=== PATIENT | female | born 1990 | race Caucasian/White ===

== ENCOUNTER 2017-11-22 17:20 | Inpatient (IN) | payer BC, OTHER ==
[2017-11-22 18:19] VITALS: BMI 21.2
--- NOTE | 2017-11-22 21:24 | HP ---
COWS - Scale Resting Pulse: 1= TN 81-100 Sweatin= Chills/Flushing Restless Observation: 1= Difficult to Sit Still Pupil Size: 0= Normal to Room Light Bone or Joint Aches: 4=Acute Joint/Muscle Pain Runny Nose/ Eye Tearin= Runny Nose/Eyes GI Upset > 30mins: 2= Nausea/Diarrhea (diarrhea x 2) Tremor Observation: 2= Slight Tremor Visible Yawning Observation: 0= None Anxiety or Irritability: 4=Extreme Anxiety Goose Flesh Skin: 0=Smooth Skin COWS Score: 17 CIWA Score - CIWA Score Nausea/Vomitin Muscle Tremors: 4-Moderate,w/Arms Extend Anxiety: 4-Mod. Anxious/Guarded Agitation: 4-Moderately Restless Paroxysmal Sweats: 1-Minimal Palms Moist Orientation: 0-Oriented Tacttile Disturbances: 0-None Auditory Disturbances: 0-None Visual Disturbances: 0-None Headache: 2-Mild CIWA-Ar Total Score: 18 Admission ROS BHS - HPI Chief Complaint: Withdrawal symptoms Allergies/Adverse Reactions: Allergies Allergy/AdvReac Type Severity Reaction Status Date / Time Penicillins Allergy Mild Hives Verified 11/22/17 18:36 NO MEAT Allergy Unknown NO MEAT Uncoded 11/22/17 18:36 History of Present Illness: 26 years old female with 13 years history of heroin and benzodiazepine dependence is seeking admission to detox. Patient has been in previous detox last at [facility] and reports insignificant period of sobriety. She has medical history of anxiety, anemia, seizure and depression. Patient reports suicide attempt in 2013 and denies suicidal ideation at this time. Patient states that she is on Methadone 110mg tablet oral at [facility]. Dose is yet to be verified by the nurse. Exam Limitations: No Limitations - Ebola screening Have you traveled outside of the country in the last 21 days: No (N) Have you had contact with anyone from an Ebola affected area: No Have you been sick,other than usual withdrawal symptoms: No Do you have a fever: No - Review of Systems Constitutional: Chills, Loss of Appetite, Malaise, Night Sweats, Changes in sleep EENT: reports: Sinus Pressure Respiratory: reports: No Symptoms reported Cardiac: reports: No Symptoms Reported GI: reports: Diarrhea (x 2), Nausea, Poor Appetite, Poor Fluid Intake, Abdominal cramping : reports: No Symptoms Reported Musculoskeletal: reports: Back Pain, Muscle Pain Integumentary: reports: No Symptoms Reported Neuro: reports: Headache, Tremors Endocrine: reports: No Symptoms Reported Hematology: reports: Anemia Psychiatric: reports: Judgement Intact, Mood/Affect Appropiate, Anxious Other Systems: Reviewed and Negative Patient History - Patient Medical History Hx Anemia: Yes (Not on mediation) Hx Asthma: No Hx Chronic Obstructive Pulmonary Disease (COPD): No Hx Cancer: No Hx Cardiac Disorders: No Hx Congestive Heart Failure: No Hx Hypertension: No Hx Hypercholesterolemia: No Hx Pacemaker: No HX Cerebrovascular Accident: No Hx Seizures: Yes (drug related last in 2010) Hx Dementia: No Hx Diabetes: No Hx Gastrointestinal Disorders: No Hx Liver Disease: No Hx Genitourinary Disorders: No Hx Sexually Transmitted Disorders: No Hx Renal Disease (ESRD): No Hx Thyroid Disease: No Hx Human Immunodeficiency Virus (HIV): No (Negative 2016) Hx Hepatitis C: No Hx Depression: Yes (Not on medication) Hx Suicide Attempt: No (Reports suicide attempt in 2013. Denies suicidal ideation at this time) Hx Bipolar Disorder: Yes Hx Schizophrenia: No Other Medical History: Anxiety - Not on medication - Patient Surgical History Past Surgical History: Yes Hx Neurologic Surgery: No Hx Cataract Extraction: No Hx Cardiac Surgery: No Hx Lung Surgery: No Hx Breast Surgery: No Hx Breast Biopsy: No Hx Abdominal Surgery: No Hx Appendectomy: No Hx Cholecystectomy: No Hx Genitourinary Surgery: No Hx Section: No Hx Orthopedic Surgery: No Anesthesia Reaction: No - PPD History Previous Implant?: Yes Documented Results: Negative w/proof Date: 11/21/11 PPD to be Administered?: Yes - Reproductive History Patient is a Female of Child Bearing Age (11 -55 yrs old): Yes Last Menstrual Period: 10/29/11 Patient : No - Smoking Cessation Smoking history: Current every day smoker Have you smoked in the past 12 months: Yes Aproximately how many cigarettes per day: 20 Hx Chewing Tobacco Use: No Initiated information on smoking cessation: Yes 'Breaking Loose' booklet given: 11/22/17 - Substance & Tx. History Hx Alcohol Use: No Hx Substance Use: Yes Substance Use Type: Cocaine, Heroin, Opiates Hx Substance Use Treatment: Yes - Substances Abused Alprazolam (Xanax) Route: Oral Frequency: Daily Amount used: 2mg Age of first use: 19 Date of Last Use: 11/22/17 Crack Route: Smoking Frequency: Daily Amount used: 5 bags Age of first use: 16 Date of Last Use: 11/21/17 Heroin Route: Injection Frequency: Daily Amount used: 40 bags Age of first use: 15 Date of Last Use: 11/22/17 Family Disease History - Family Disease History Family Disease History: Heart Disease: Grandparent (Prostate Ca and HTN), CA: Grandparent Admission Physical Exam [facility] - Vital Signs Vital Signs: Vital Signs - 24 hr 11/22/17 18:15 Temperature 97.0 F L Pulse Rate 83 Respiratory 18 Rate Blood Pressure 112/68 - Physical General Appearance: Yes: Moderate Distress HEENTM: Yes: EOMI, Normal ENT Inspection, Normocephalic, Normal Voice, KATHE Respiratory: Yes: Lungs Clear, Normal Breath Sounds, No Respiratory Distress Neck: Yes: Supple Breast: Yes: Breast Exam Deferred Cardiology: Yes: Regular Rhythm, Regular Rate Abdominal: Yes: Normal Bowel Sounds Genitourinary: Yes: Within Normal Limits Back: Yes: Normal Inspection Musculoskeletal: Yes: Back pain, Muscle Pain Extremities: Yes: Tremors Neurological: Yes: occupational therapy supervisor II-XII NML intact, Alert Integumentary: Yes: Warm Lymphatic: Yes: Within Normal Limits - Diagnostic (1) Opioid dependence with withdrawal Current Visit: Yes Status: Chronic (2) Sedative, hypnotic or anxiolytic dependence with withdrawal, uncomplicated Current Visit: Yes Status: Chronic (3) Anxiety Current Visit: Yes Status: Chronic (4) Anemia Current Visit: Yes Status: Chronic Qualifiers: Anemia type: unspecified type Qualified Code(s): D64.9 - Anemia, unspecified (5) Seizure Current Visit: Yes Status: Chronic (6) Depression Current Visit: Yes Status: Chronic Qualifiers: Depression Type: unspecified Qualified Code(s): F32.9 - Major depressive disorder, single episode, unspecified Cleared for Admission [facility] - Detox or Rehab [facility] Level of Care: Medically Managed Detox Regimen/Protocol: Valium [facility] Breath Alcohol Content Breath Alcohol Content: 0 Urine Pregancy Test - Result Urine Test Results: Negative- NO Line Present Urine Drug Screen - Results Drug Screen Negative: No Urine Drug Screen Results: NERISSA-Cocaine, OPI-Opiates, MDMA-Ecstasy, BAR- Barbiturates, FEN-Fentanyl
[2017-11-22] MEDS ORDERED: MELATONIN 5 MG TABLETS PO PRN (22:00)
[2017-11-22] MEDS ORDERED: diazePAM 5 MG TABLET PO PRN (23:06)
[2017-11-22] MEDS ORDERED: P-EPHED 60MG/TRIPROLIDI 2.5MG TABLET PO PRN (23:06)
[2017-11-22] MEDS ORDERED: MAGNESIUM CITRATE 300 ML BOTTLE PO PRN (23:06)
[2017-11-22] MEDS ORDERED: MAGNESIUM HYDROX 2400MG/30ML ORAL SUSPENSION 30 ML CUP PO PRN (23:06)
[2017-11-22] MEDS ORDERED: MENTHOL/PHENOL 1 EACH UD MM PRN (23:06)
[2017-11-22] MEDS ORDERED: LOPERAMIDE HCL 2 MG CAPSULE PO PRN (23:06)
[2017-11-22] MEDS ORDERED: guaiFENesin/D-METHORPHAN HB 10 ML UNIT-DOSE CUPS PO PRN (23:06)
[2017-11-22] MEDS ORDERED: MAG HYDROX/AL HYDROX/SIMETH 30 ML UNIT-DOSE CUP PO PRN (23:06)
[2017-11-22] MEDS ORDERED: NICOTINE POLACRILEX 2 MG GUM BC PRN (23:06)
[2017-11-22] MEDS ORDERED: ACETAMINOPHEN 325 MG TABLET (FP) PO PRN (23:06)
[2017-11-22] MEDS ORDERED: diazePAM 5 MG TABLET PO ONE (23:15)
[2017-11-23] MEDS ORDERED: diazePAM 5 MG TABLET PO ONE (00:34)
[2017-11-23] MEDS: diazePAM 5 MG TABLET PO SCH ×5 (01:03→22:24)
--- NOTE | 2017-11-23 08:49 | CONSULT ---
[facility] Psychiatric Consult - Data Date of interview: 11/23/17 Admission source: [facility] Identifying data: This is a 26 years old female, single mother of one, unemployed, living alone, on PA, with 13 years history of heroin and benzodiazepine dependence is seeking admission to detox. Patient has been in previous detox last at [facility] and reports insignificant period of sobriety. Substance Abuse History: Urine Drug Screen Results: NERISSA-Cocaine, OPI-Opiates, MDMA-Ecstasy, BAR-Barbiturates, FEN-Fentanyl. Smoking history: Current every day smoker. Have you smoked in the past 12 months: Yes. Aproximately how many cigarettes per day: 20. Hx Chewing Tobacco Use: No. Initiated information on smoking cessation: Yes. 'Breaking Loose' booklet given: 11/22/17. - Substance & Tx. History. Hx Alcohol Use: No. Hx Substance Use: Yes. Substance Use Type : Cocaine, Heroin, Opiates. Hx Substance Use Treatment: Yes. - Substances Abused. Alprazolam (Xanax). Route: Oral. Frequency: Daily. Amount used: 2mg. Age of first use: 19. Date of Last Use: 11/22/17. Crack. Route: Smoking. Frequency: Daily. Amount used: 5 bags. Age of first use: 16. Date of Last Use: 11/21/17. Heroin. Route: Injection. Frequency: Daily. Amount used: 40 bags. Age of first use: 15. Date of Last Use: 11/22/17 Medical History: MMTP 110mg per day, Anemia history, Seizure history, Psychiatric History: As per comp[uter carries Bipolar Disorder, reports suicidal attempt by OD on 2013, psychiatric admission at thet time, demied suicidal, homicidal history since then, reports tasking prior to admission: Ambien 10mg po qhs. Gabapentine 800mg po qid. Lexapro 30mg poqd Physical/Sexual Abuse/Trauma History: Denies Additional Comment: Urine Drug Screen Results: NERISSA-Cocaine, OPI-Opiates, MDMA- Ecstasy, BAR-Barbiturates, FEN-Fentanyl. Ambien 10mg po qhs. Gabapentine 800mg po qid. Lexapro 30mg poqd Mental Status Exam - Mental Status Exam Alert and Oriented to: Person Cognitive Function: Fair Patient Appearance: Unkempt Mood: Sad Affect: Flat Patient Behavior: Sedated Speech Pattern: Delayed Voice Loudness: Mildly Soft/Quiet Thought Process: Circumstantial Thought Disorder: Being Controlled Hallucinations: Denies Suicidal Ideation: Denies Homicidal Ideation: Denies Insight/Judgement: Fair Sleep: Difficulty falling asleep Appetite: Fair Muscle strength/Tone: Mild Hypotonicity Gait/Station: Shuffling Additional Comments: Ambien 10mg po qhs. Gabapentine 800mg po qid. Lexapro 30mg poqd Psychiatric Findings - Problem List ([place] 1, 2,3) (1) Anemia Current Visit: Yes Status: Chronic Qualifiers: Anemia type: unspecified type Qualified Code(s): D64.9 - Anemia, unspecified (2) Anxiety Current Visit: Yes Status: Chronic (3) Depression Current Visit: Yes Status: Chronic Qualifiers: Depression Type: unspecified Qualified Code(s): F32.9 - Major depressive disorder, single episode, unspecified (4) Opioid dependence with withdrawal Current Visit: Yes Status: Chronic (5) Sedative, hypnotic or anxiolytic dependence with withdrawal, uncomplicated Current Visit: Yes Status: Chronic (6) Seizure Current Visit: Yes Status: Chronic (7) Opioid dependence Current Visit: No Status: Active (8) bipolar disorder with depression Current Visit: No Status: Active (9) ptsd Current Visit: No Status: Active - Initial Treatment Plan Initial Treatment Plan: Ambien 10mg po qhs. Gabapentine 800mg po qid. Lexapro 30mg poqd
[2017-11-23] MEDS ORDERED: ESCITALOPRAM OXALATE 10 MG TABLET (FP) ONE (09:26)
[2017-11-23] MEDS ORDERED: ESCITALOPRAM OXALATE 20 MG TABLET (FP) ONE (09:27)
[2017-11-23] MEDS ORDERED: ESCITALOPRAM OXALATE 20 MG TABLET (FP) PO SCH (10:00)
--- NOTE | 2017-11-23 10:01 | EKG ---
Test Reason : Blood Pressure : / mmHG Vent. Rate : 075 BPM Atrial Rate : 075 BPM P-R Int : 132 ms QRS Dur : 080 ms QT Int : 384 ms P-R-T Axes : 056 079 060 degrees QTc Int : 428 ms NORMAL SINUS RHYTHM NORMAL ECG NO PREVIOUS ECGS AVAILABLE Confirmed by ROSALINDA MORGAN MD ([id number]) on 11/23/2017 10:01:29 AM Referred By: Confirmed By:ROSALINDA MORGAN MD
[2017-11-23 10:32] LABS: HEMATOCRIT 39.3 % (32.4-45.2); HEMOGLOBIN 12.8 GM/dL (10.7-15.3); MCH 27.5 pg (25.7-33.7); MCHC 32.7 g/dl (32.0-36.0); MEAN CELL VOLUME 84.1 fl (80-96); MEAN PLT VOLUME 8.9 fl (7.5-11.1); RBC 4.67 M/mm3 (3.60-5.2); RDW 12.5 % (11.6-15.6); WHITE BLOOD COUNT 6.7 K/mm3 (4.0-10.0)
[2017-11-23] MEDS: NICOTINE 14 MG/24 HOURS TOPICAL PATCH TD SCH (10:36)
[2017-11-23] MEDS: GABAPENTIN 400 MG CAPSULE (FP) PO SCH ×4 (10:36→22:25)
[2017-11-23] MEDS: PRENATAL VITAMINS W/ FOLIC ACID TABLET (FP) PO SCH (10:37)
[2017-11-23] MEDS: ESCITALOPRAM OXALATE PO SCH (10:37)
[2017-11-23] MEDS: diazePAM 5 MG TABLET PO PRN (10:39)
[2017-11-23 11:04] LABS: CHLORIDE 104 mmol/L (98-107); SODIUM 141 mmol/L (136-145)
[2017-11-23 11:05] LABS: PLATELET COUNT 165 K/MM3 (134-434)
--- NOTE | 2017-11-23 11:08 | PN ---
[facility] CIWA - CIWA Score Nausea/Vomitin-Mild Nausea/No Vomiting Muscle Tremors: 4-Moderate,w/Arms Extend Anxiety: 4-Mod. Anxious/Guarded Agitation: 4-Moderately Restless Paroxysmal Sweats: 2 Orientation: 1-Uncertain about Date Tacttile Disturbances: 1-Very Mild Itch/Numbness Auditory Disturbances: 0-None Visual Disturbances: 0-None Headache: 1-Very Mild CIWA-Ar Total Score: 18 BHS COWS - Scale Resting Pulse: 0= ID 80 or Below Sweatin= Chills/Flushing Restless Observation: 3= Extraneous Movement (cows 19 today + opiate urine tox upon admission begin methadone detox) Pupil Size: 0= Normal to Room Light Bone or Joint Aches: 2= Severe Diffuse Aches Runny Nose/ Eye Tearin= Runny Nose/Eyes GI Upset > 30mins: 2= Nausea/Diarrhea Tremor Observation of Outstretched Hands: 2= Slight Tremor Visible Yawning Observation: 2= >3x During Session Anxiety or Irritability: 2=Irritable/Anxious Goose Flesh Skin: 3=Piloerection (patient had cows 17 upon admission cows) COWS Score: 19 S Progress Note (SOAP) Subjective: the nurse called methadone program as per patient provided patient was expatient 2016 patient has sever opiate withdrawal sx as well as alcohol withdrawal sx sweat tremor restlessness irritable diarrhea anxiety Objective: 11/23/17 16:57 Vital Signs Temperature 98.2 F 11/23/17 13:04 Pulse Rate 72 11/23/17 13:04 Respiratory Rate 16 11/23/17 13:04 Blood Pressure 112/69 11/23/17 13:04 O2 Sat by Pulse Oximetry (%) Laboratory Last Values WBC 6.7 K/mm3 (4.0-10.0) 11/23/17 08:00 RBC 4.67 M/mm3 (3.60-5.2) 11/23/17 08:00 Hgb 12.8 GM/dL (10.7-15.3) 11/23/17 08:00 Hct 39.3 % (32.4-45.2) 11/23/17 08:00 MCV 84.1 fl (80-96) 11/23/17 08:00 MCH 27.5 pg (25.7-33.7) 11/23/17 08:00 MCHC 32.7 g/dl (32.0-36.0) 11/23/17 08:00 RDW 12.5 % (11.6-15.6) D 11/23/17 08:00 Plt Count 165 K/MM3 (134-434) 11/23/17 08:00 MPV 8.9 fl (7.5-11.1) 11/23/17 08:00 Platelet Comment 11/23/17 08:00 Sodium 141 mmol/L (136-145) 11/23/17 08:00 Potassium 4.2 mmol/L (3.5-5.1) 11/23/17 08:00 Chloride 104 mmol/L (98-107) 11/23/17 08:00 Carbon Dioxide 27 mmol/L (21-32) 11/23/17 08:00 Anion Gap 10 MMOL/L (8-16) 11/23/17 08:00 BUN 8 mg/dL (7-18) 11/23/17 08:00 Creatinine 0.5 mg/dL (0.55-1.3) L 11/23/17 08:00 Creat Clearance w eGFR > 60 (>60) 11/23/17 08:00 Random Glucose 101 mg/dL (74-106) 11/23/17 08:00 Calcium 8.4 mg/dL (8.5-10.1) L 11/23/17 08:00 Total Bilirubin 0.1 mg/dL (0.2-1.0) L 11/23/17 08:00 AST 13 U/L (15-37) L 11/23/17 08:00 ALT 11 U/L (13-61) L 11/23/17 08:00 Alkaline Phosphatase 64 U/L (45-117) 11/23/17 08:00 Total Protein 5.9 g/dl (6.4-8.2) L 11/23/17 08:00 Albumin 2.8 g/dl (3.4-5.0) L 11/23/17 08:00 RPR Titer Nonreactive (NONREACTIVE) 11/23/17 06:00 lab noted Assessment: 11/23/17 16:59 withdrawal sx begin opiate detox Plan: continue detox
[2017-11-23 11:18] LABS: ALBUMIN 2.8 g/dl (3.4-5.0); ALK PHOS 64 U/L (45-117); ANION GAP 10 MMOL/L (8-16); BILIRUBIN,TOTAL 0.1 mg/dL (0.2-1.0); BLOOD UREA NITROGEN 8 mg/dL (7-18); CALCIUM 8.4 mg/dL (8.5-10.1); CO2 27 mmol/L (21-32); CREATININE 0.5 mg/dL (0.55-1.3); GLUCOSE,RANDOM 101 mg/dL (74-106); SGPT/ALT 11 U/L (13-61); TOT PROT 5.9 g/dl (6.4-8.2)
[2017-11-23 11:20] LABS: POTASSIUM 4.2 mmol/L (3.5-5.1); SGOT/AST 13 U/L (15-37)
[2017-11-23] MEDS ORDERED: METHADONE HCL 10 MG TABLET (FOR DETOX USE ONLY) PO ONE (12:10)
[2017-11-23] MEDS: BACLOFEN 10 MG TABLET (FP) PO SCH ×2 (14:00→22:24)
[2017-11-23] MEDS ORDERED: METHADONE HCL 10 MG TABLET (FOR DETOX USE ONLY) ONE (17:18)
[2017-11-23] MEDS: THIAMINE HCL 100 MG TABLET (FP) PO SCH (22:24)
[2017-11-24] MEDS: diazePAM 5 MG TABLET PO SCH ×3 (05:37→22:07)
[2017-11-24] MEDS: BACLOFEN 10 MG TABLET (FP) PO SCH (05:38)
[2017-11-24] MEDS ORDERED: ESCITALOPRAM OXALATE 10 MG TABLET (FP) ONE (08:38)
[2017-11-24] MEDS ORDERED: ESCITALOPRAM OXALATE 20 MG TABLET (FP) ONE (08:39)
[2017-11-24] MEDS: diazePAM 5 MG TABLET PO PRN ×3 (08:50→22:07)
[2017-11-24] MEDS: CYCLOBENZAPRINE HCL 10 MG TABLET (FP) PO PRN ×2 (09:33→17:47)
[2017-11-24] MEDS ORDERED: diazePAM 5 MG TABLET PO SCH (10:00)
[2017-11-24] MEDS ORDERED: METHADONE HCL 5 MG TABLET (FOR DETOX USE ONLY) PO ONE (10:00)
[2017-11-24] MEDS: GABAPENTIN 400 MG CAPSULE (FP) PO SCH ×4 (10:10→22:06)
[2017-11-24] MEDS: NICOTINE 14 MG/24 HOURS TOPICAL PATCH TD SCH (10:11)
[2017-11-24] MEDS: PRENATAL VITAMINS W/ FOLIC ACID TABLET (FP) PO SCH (10:11)
[2017-11-24] MEDS: ESCITALOPRAM OXALATE PO SCH (10:11)
--- NOTE | 2017-11-24 16:13 | PN ---
[facility] CIWA - CIWA Score Nausea/Vomitin-Mild Nausea/No Vomiting Muscle Tremors: 4-Moderate,w/Arms Extend Anxiety: 4-Mod. Anxious/Guarded Agitation: 4-Moderately Restless Paroxysmal Sweats: 1-Minimal Palms Moist Orientation: 0-Oriented Tacttile Disturbances: 0-None Auditory Disturbances: 0-None Visual Disturbances: 0-None Headache: 0-None Present CIWA-Ar Total Score: 14 S COWS - Scale Resting Pulse: 0= [place] 80 or Below Sweatin= Chills/Flushing Restless Observation: 1= Difficult to Sit Still Pupil Size: 0= Normal to Room Light Bone or Joint Aches: 2= Severe Diffuse Aches Runny Nose/ Eye Tearin= Nasal Congestion GI Upset > 30mins: 2= Nausea/Diarrhea Tremor Observation of Outstretched Hands: 2= Slight Tremor Visible Yawning Observation: 1= 1-2x During Session Anxiety or Irritability: 1=Feels Anxious/Irritable Goose Flesh Skin: 3=Piloerection COWS Score: 14 [facility] Progress Note (SOAP) Subjective: body ache muscle cramp sweat tremor Objective: 11/24/17 16:11 Vital Signs Temperature 98.1 F 11/24/17 13:59 Pulse Rate 68 11/24/17 13:59 Respiratory Rate 16 11/24/17 13:59 Blood Pressure 118/71 11/24/17 13:59 O2 Sat by Pulse Oximetry (%) Laboratory Last Values WBC 6.7 K/mm3 (4.0-10.0) 11/23/17 08:00 RBC 4.67 M/mm3 (3.60-5.2) 11/23/17 08:00 Hgb 12.8 GM/dL (10.7-15.3) 11/23/17 08:00 Hct 39.3 % (32.4-45.2) 11/23/17 08:00 MCV 84.1 fl (80-96) 11/23/17 08:00 MCH 27.5 pg (25.7-33.7) 11/23/17 08:00 MCHC 32.7 g/dl (32.0-36.0) 11/23/17 08:00 RDW 12.5 % (11.6-15.6) D 11/23/17 08:00 Plt Count 165 K/MM3 (134-434) 11/23/17 08:00 MPV 8.9 fl (7.5-11.1) 11/23/17 08:00 Platelet Comment 11/23/17 08:00 Sodium 141 mmol/L (136-145) 11/23/17 08:00 Potassium 4.2 mmol/L (3.5-5.1) 11/23/17 08:00 Chloride 104 mmol/L (98-107) 11/23/17 08:00 Carbon Dioxide 27 mmol/L (21-32) 11/23/17 08:00 Anion Gap 10 MMOL/L (8-16) 11/23/17 08:00 BUN 8 mg/dL (7-18) 11/23/17 08:00 Creatinine 0.5 mg/dL (0.55-1.3) L 11/23/17 08:00 Creat Clearance w eGFR > 60 (>60) 11/23/17 08:00 Random Glucose 101 mg/dL (74-106) 11/23/17 08:00 Calcium 8.4 mg/dL (8.5-10.1) L 11/23/17 08:00 Total Bilirubin 0.1 mg/dL (0.2-1.0) L 11/23/17 08:00 AST 13 U/L (15-37) L 11/23/17 08:00 ALT 11 U/L (13-61) L 11/23/17 08:00 Alkaline Phosphatase 64 U/L (45-117) 11/23/17 08:00 Total Protein 5.9 g/dl (6.4-8.2) L 11/23/17 08:00 Albumin 2.8 g/dl (3.4-5.0) L 11/23/17 08:00 RPR Titer Nonreactive (NONREACTIVE) 11/23/17 06:00 lab noted Assessment: 11/24/17 16:12 withdrawal sx Plan: continue detox patient was witnessed touching male patient's penis today multidiscipline meeting with counselor nurse discuss unit role and regulation
[2017-11-24] MEDS: THIAMINE HCL 100 MG TABLET (FP) PO SCH (22:06)
[2017-11-24] MEDS: ZOLPIDEM TARTRATE 10 MG TABLET (PARK CARE ONLY) PO PRN (22:10)
[2017-11-25] MEDS: CYCLOBENZAPRINE HCL 10 MG TABLET (FP) PO PRN ×3 (03:09→17:13)
[2017-11-25] MEDS: diazePAM 5 MG TABLET PO PRN ×4 (03:09→22:19)
[2017-11-25] MEDS ORDERED: ESCITALOPRAM OXALATE 10 MG TABLET (FP) ONE (08:34)
[2017-11-25] MEDS ORDERED: ESCITALOPRAM OXALATE 20 MG TABLET (FP) ONE (08:34)
[2017-11-25] MEDS ORDERED: METHADONE HCL 5 MG TABLET (FOR DETOX USE ONLY) PO ONE (10:00)
[2017-11-25] MEDS: ESCITALOPRAM OXALATE PO SCH (10:27)
[2017-11-25] MEDS: diazePAM 5 MG TABLET PO SCH ×2 (10:27→22:49)
[2017-11-25] MEDS: NICOTINE 14 MG/24 HOURS TOPICAL PATCH TD SCH (10:28)
[2017-11-25] MEDS: PRENATAL VITAMINS W/ FOLIC ACID TABLET (FP) PO SCH (10:28)
[2017-11-25] MEDS: GABAPENTIN 400 MG CAPSULE (FP) PO SCH ×4 (10:28→22:19)
--- NOTE | 2017-11-25 10:50 | PN ---
S Progress Note (SOAP) Subjective: C/o backache, generalized bone and muscle aches, nausea, vomiting (x 2 last night), and shaky. C/o increased anxiety and requesting vistaril. Objective: 11/25/17 10:49 Vital Signs 11/25/17 11/25/17 11/25/17 03:30 06:00 09:51 Temperature 97.9 F 98.1 F Pulse Rate 62 72 Respiratory 18 16 16 Rate Blood Pressure 100/59 120/58 Laboratory Last Values WBC 6.7 K/mm3 (4.0-10.0) 11/23/17 08:00 RBC 4.67 M/mm3 (3.60-5.2) 11/23/17 08:00 Hgb 12.8 GM/dL (10.7-15.3) 11/23/17 08:00 Hct 39.3 % (32.4-45.2) 11/23/17 08:00 MCV 84.1 fl (80-96) 11/23/17 08:00 MCH 27.5 pg (25.7-33.7) 11/23/17 08:00 MCHC 32.7 g/dl (32.0-36.0) 11/23/17 08:00 RDW 12.5 % (11.6-15.6) D 11/23/17 08:00 Plt Count 165 K/MM3 (134-434) 11/23/17 08:00 MPV 8.9 fl (7.5-11.1) 11/23/17 08:00 Platelet Comment 11/23/17 08:00 Sodium 141 mmol/L (136-145) 11/23/17 08:00 Potassium 4.2 mmol/L (3.5-5.1) 11/23/17 08:00 Chloride 104 mmol/L (98-107) 11/23/17 08:00 Carbon Dioxide 27 mmol/L (21-32) 11/23/17 08:00 Anion Gap 10 MMOL/L (8-16) 11/23/17 08:00 BUN 8 mg/dL (7-18) 11/23/17 08:00 Creatinine 0.5 mg/dL (0.55-1.3) L 11/23/17 08:00 Creat Clearance w eGFR > 60 (>60) 11/23/17 08:00 Random Glucose 101 mg/dL (74-106) 11/23/17 08:00 Calcium 8.4 mg/dL (8.5-10.1) L 11/23/17 08:00 Total Bilirubin 0.1 mg/dL (0.2-1.0) L 11/23/17 08:00 AST 13 U/L (15-37) L 11/23/17 08:00 ALT 11 U/L (13-61) L 11/23/17 08:00 Alkaline Phosphatase 64 U/L (45-117) 11/23/17 08:00 Total Protein 5.9 g/dl (6.4-8.2) L 11/23/17 08:00 Albumin 2.8 g/dl (3.4-5.0) L 11/23/17 08:00 RPR Titer Nonreactive (NONREACTIVE) 11/23/17 06:00 Labs reviewed. Assessment: Withdrawal symptoms Plan: Continue detox 2 pitchers water daily, Encourage ambulation Zachariah Stevenson
[2017-11-25] MEDS ORDERED: ONDANSETRON *ODT* 4 MG TABLET SL PRN (10:51)
[2017-11-25] MEDS: hydrOXYzine PAMOATE 50 MG CAPSULE (FP) PO PRN (16:51)
[2017-11-25] MEDS: ZOLPIDEM TARTRATE 10 MG TABLET (PARK CARE ONLY) PO PRN (22:19)
[2017-11-25] MEDS: THIAMINE HCL 100 MG TABLET (FP) PO SCH (22:19)
[2017-11-26] MEDS: CYCLOBENZAPRINE HCL 10 MG TABLET (FP) PO PRN ×3 (06:11→22:20)
[2017-11-26] MEDS: hydrOXYzine PAMOATE 50 MG CAPSULE (FP) PO PRN ×2 (06:11→18:03)
[2017-11-26] MEDS ORDERED: ESCITALOPRAM OXALATE 20 MG TABLET (FP) ONE (09:39)
[2017-11-26] MEDS ORDERED: ESCITALOPRAM OXALATE 10 MG TABLET (FP) ONE (09:39)
[2017-11-26] MEDS ORDERED: diazePAM 5 MG TABLET PO SCH (10:00)
[2017-11-26] MEDS ORDERED: METHADONE HCL 10 MG TABLET (FOR DETOX USE ONLY) PO ONE (10:00)
[2017-11-26] MEDS: GABAPENTIN 400 MG CAPSULE (FP) PO SCH ×4 (10:20→22:19)
[2017-11-26] MEDS: diazePAM 5 MG TABLET PO SCH ×2 (10:20→22:20)
[2017-11-26] MEDS: ESCITALOPRAM OXALATE PO SCH (10:21)
[2017-11-26] MEDS: NICOTINE 14 MG/24 HOURS TOPICAL PATCH TD SCH (10:21)
[2017-11-26] MEDS: PRENATAL VITAMINS W/ FOLIC ACID TABLET (FP) PO SCH (11:04)
[2017-11-26] MEDS: IBUPROFEN 400 MG TABLET (FP) PO PRN ×2 (11:26→18:04)
[2017-11-26 15:17] LABS: URINE APPEARANCE SLCLOUDY; URINE BILIRUBIN NEGATIVE (<2.0 mg/dL); URINE COLOR YELLOW; URINE GLUCOSE (UA) NEGATIVE (NEGATIVE); URINE KETONE NEGATIVE (NEGATIVE); URINE LEUK ESTERASE NEGATIVE (NEGATIVE); URINE NITRITE NEGATIVE (NEGATIVE); URINE PROTEIN NEGATIVE (NEGATIVE); URINE UROBILINOGEN NEGATIVE mg/dL (0.2-1.0)
--- NOTE | 2017-11-26 17:13 | PN ---
BHS Progress Note (SOAP) Subjective: feeling better no sweat no tremor sleep better at night Objective: 11/26/17 17:12 Vital Signs Temperature 98.1 F 11/26/17 13:51 Pulse Rate 82 11/26/17 13:51 Respiratory Rate 16 11/26/17 13:51 Blood Pressure 113/70 11/26/17 13:51 O2 Sat by Pulse Oximetry (%) Laboratory Last Values WBC 6.7 K/mm3 (4.0-10.0) 11/23/17 08:00 RBC 4.67 M/mm3 (3.60-5.2) 11/23/17 08:00 Hgb 12.8 GM/dL (10.7-15.3) 11/23/17 08:00 Hct 39.3 % (32.4-45.2) 11/23/17 08:00 MCV 84.1 fl (80-96) 11/23/17 08:00 MCH 27.5 pg (25.7-33.7) 11/23/17 08:00 MCHC 32.7 g/dl (32.0-36.0) 11/23/17 08:00 RDW 12.5 % (11.6-15.6) D 11/23/17 08:00 Plt Count 165 K/MM3 (134-434) 11/23/17 08:00 MPV 8.9 fl (7.5-11.1) 11/23/17 08:00 Platelet Comment 11/23/17 08:00 Sodium 141 mmol/L (136-145) 11/23/17 08:00 Potassium 4.2 mmol/L (3.5-5.1) 11/23/17 08:00 Chloride 104 mmol/L (98-107) 11/23/17 08:00 Carbon Dioxide 27 mmol/L (21-32) 11/23/17 08:00 Anion Gap 10 MMOL/L (8-16) 11/23/17 08:00 BUN 8 mg/dL (7-18) 11/23/17 08:00 Creatinine 0.5 mg/dL (0.55-1.3) L 11/23/17 08:00 Creat Clearance w eGFR > 60 (>60) 11/23/17 08:00 Random Glucose 101 mg/dL (74-106) 11/23/17 08:00 Calcium 8.4 mg/dL (8.5-10.1) L 11/23/17 08:00 Total Bilirubin 0.1 mg/dL (0.2-1.0) L 11/23/17 08:00 AST 13 U/L (15-37) L 11/23/17 08:00 ALT 11 U/L (13-61) L 11/23/17 08:00 Alkaline Phosphatase 64 U/L (45-117) 11/23/17 08:00 Total Protein 5.9 g/dl (6.4-8.2) L 11/23/17 08:00 Albumin 2.8 g/dl (3.4-5.0) L 11/23/17 08:00 Urine Color Yellow 11/26/17 12:30 Urine Appearance Slcloudy 11/26/17 12:30 Urine pH 6.0 (5.0-8.0) 11/26/17 12:30 Ur Specific [place] 1.018 (1.001-1.035) 11/26/17 12:30 Urine Protein Negative (NEGATIVE) 11/26/17 12:30 Urine Glucose (UA) Negative (NEGATIVE) 11/26/17 12:30 Urine Ketones Negative (NEGATIVE) 11/26/17 12:30 Urine Blood Negative (NEGATIVE) 11/26/17 12:30 Urine Nitrite Negative (NEGATIVE) 11/26/17 12:30 Urine Bilirubin Negative (<2.0 mg/dL) 11/26/17 12:30 Urine Urobilinogen Negative mg/dL (0.2-1.0) 11/26/17 12:30 Ur Leukocyte Esterase Negative (NEGATIVE) 11/26/17 12:30 RPR Titer Nonreactive (NONREACTIVE) 11/23/17 06:00 lab noted Assessment: 11/26/17 17:12 withdrawal sx Plan: medically supervised detox
[2017-11-26] MEDS: ZOLPIDEM TARTRATE 10 MG TABLET (PARK CARE ONLY) PO PRN (22:19)
[2017-11-26] MEDS: THIAMINE HCL 100 MG TABLET (FP) PO SCH (22:20)
[2017-11-27] MEDS: hydrOXYzine PAMOATE 50 MG CAPSULE (FP) PO PRN (05:59)
[2017-11-27] MEDS: CYCLOBENZAPRINE HCL 10 MG TABLET (FP) PO PRN (05:59)
[2017-11-27] MEDS ORDERED: METHADONE HCL 5 MG TABLET (FOR DETOX USE ONLY) PO ONE (06:00)
[2017-11-27] MEDS ORDERED: ESCITALOPRAM OXALATE 20 MG TABLET (FP) ONE (09:09)
[2017-11-27] MEDS ORDERED: ESCITALOPRAM OXALATE 10 MG TABLET (FP) ONE (09:09)
[2017-11-27 09:26] VITALS: BP 121/80; PULSE 93; TEMP 97.9
[2017-11-27] MEDS: GABAPENTIN 400 MG CAPSULE (FP) PO SCH (09:31)
[2017-11-27] MEDS: ESCITALOPRAM OXALATE PO SCH (09:32)
[2017-11-27] MEDS: PRENATAL VITAMINS W/ FOLIC ACID TABLET (FP) PO SCH (09:33)
[2017-11-27] MEDS ORDERED: diazePAM 5 MG TABLET PO SCH (10:00)
--- NOTE | 2017-11-27 10:36 | PN ---
S Progress Note Note: Psychiatric nurse practitioner note: Employee Health Nurse informed by nursing staff that patient was discharged this morning. Employee Health Nurse unable to complete psychiatric re-consultation.
--- NOTE | 2017-11-27 13:32 | DS ---
[facility] Detox Discharge Summary Admission Date: 11/22/17 Discharge Date: 11/27/17 - History Present History: Opioid Dependence, Sedative Dependence - Physical Exam Results Vital Signs: Vital Signs Temperature 97.9 F 11/27/17 09:26 Pulse Rate 93 H 11/27/17 09:26 Respiratory Rate 18 11/27/17 09:26 Blood Pressure 121/80 11/27/17 09:26 O2 Sat by Pulse Oximetry (%) Pertinent Admission Physical Exam Findings: PATIENT TOLERATED DETOX WELL. CLINICALLY STABLE AT TIME OF DISCHARGE. Vital Signs Temperature 97.9 F 11/27/17 09:26 Pulse Rate 93 H 11/27/17 09:26 Respiratory Rate 18 11/27/17 09:26 Blood Pressure 121/80 11/27/17 09:26 O2 Sat by Pulse Oximetry (%) - Treatment Hospital Course: Detox Protocol Followed, Detoxed Safely, Responded well, Discharged Condition Good - Medication Discharge Medications: Ambulatory Orders Clonidine HCl 0.3 mg PO HS 11/22/17 Zolpidem Tartrate [Ambien] 10 mg PO HS 11/22/17 Escitalopram Oxalate [Lexapro -] 30 mg PO DAILY #30 tablet 11/23/17 Gabapentin [Neurontin -] 800 mg PO QID #120 capsule 11/23/17 - AMA Did Patient Leave Against Medical Advice: No
== END 2017-11-27 10:01 | disposition home or self-care (01) | DRG 773 ==
LOC: YASAS 17:20 → Y6N 22:55
PROC: HZ2ZZZZ Detoxification Services for Substance Abuse Treatment (ICD-10-PCS; principal; 2017-11-22)
DX: F11.23 Opioid dependence with withdrawal (principal); F13.230 Sedative, hypnotic or anxiolytic dependence with withdrawal, uncomplicated; F31.9 Bipolar disorder, unspecified; F43.10 Post-traumatic stress disorder, unspecified; F41.9 Anxiety disorder, unspecified; D64.9 Anemia, unspecified; Z86.69 Personal history of other diseases of the nervous system and sense organs; Z91.5 Personal history of self-harm; Z88.0 Allergy status to penicillin
CPT/HCPCS: 36415; 80053; 81003; 85027; 86593; 93005; 93010; J0475